=== PATIENT | female | born 1965 | race Caucasian/White ===

== ENCOUNTER 2018-11-10 08:44 | Emergency (ER) | payer OTHER ==
[2018-11-10] MEDS ORDERED: DIPHENHYDRAMINE HCL 50 MG/ML VIAL IV ONE (09:45)
[2018-11-10] MEDS ORDERED: FAMOTIDINE INJ/PF 20 MG/2 ML SDV IV ONE (09:45)
[2018-11-10] MEDS ORDERED: METHYLPREDNISOLONE INJ 125 MG/2 ML SDV IV ONE (09:45)
[2018-11-10 09:52] LABS: ABSOLUTE LYMPHOCYTES (AUTO) 1.3 10^3/uL (0.5-4.7); ABSOLUTE MONOCYTES (AUTO) 0.6 10^3/uL (0.1-1.4); ABSOLUTE NEUT (AUTO) 11.8 10^3/uL (1.7-8.2); BASOPHILS % (AUTO) 0.3 % (0-2); EOSINOPHILS % (AUTO) 0.2 % (0-6); HEMATOCRIT 39.5 % (36.0-47.0); HEMOGLOBIN 13.3 g/dL (12.0-15.5); LYMPHOCYTES % (AUTO) 9.6 % (13-45); MEAN CORPUSCULAR HEMOGLOBIN 28.4 pg (27.0-33.4); MEAN CORPUSCULAR HGB CONC 33.8 g/dL (32.0-36.0); MEAN CORPUSCULAR VOLUME 84 fl (80-97); PLATELET COUNT 709 10^3/uL (150-450); RED BLOOD COUNT 4.71 10^6/uL (3.72-5.28); RED CELL DISTRIBUTION WIDTH 12.9 % (11.5-14.0); SEGMENTED NEUTROPHILS % (AUTO) 85.9 % (42-78); TOTAL CELLS COUNTED % (AUTO) 100 %; WHITE BLOOD COUNT 13.8 10^3/uL (4.0-10.5)
[2018-11-10 10:08] LABS: ALKALINE PHOSPHATASE 97 U/L (38-126); ANION GAP 10 (5-19); ASPARTATE AMINO TRANSFERASE 26 U/L (14-36); BILIRUBIN,DIRECT 0.4 mg/dL (0.0-0.4); BILIRUBIN,TOTAL 1.3 mg/dL (0.2-1.3); BLOOD UREA NITROGEN 17 mg/dL (7-20); CALCIUM 9.7 mg/dL (8.4-10.2); CARBON DIOXIDE 27 mmol/L (22-30); CHLORIDE 99 mmol/L (98-107); GLUCOSE 138 mg/dL (75-110); POTASSIUM 4.7 mmol/L (3.6-5.0); TOTAL PROTEIN 7.1 g/dL (6.3-8.2)
[2018-11-10] MEDS ORDERED: NORMAL SALINE 1000 ML 1,000 ML IV ONE (10:37)
--- NOTE | 2018-11-10 10:44 | RADIOLOGY REPORT (SQ) ---
EXAM DESCRIPTION: CHEST 2 VIEWS COMPLETED DATE/TIME: 11/10/2018 10:22 am REASON FOR STUDY: sob COMPARISON: None. TECHNIQUE: Frontal and lateral radiographic views of the chest acquired. NUMBER OF VIEWS: Two view. LIMITATIONS: None. FINDINGS: LUNGS AND PLEURA: No opacities, masses or pneumothorax. No pleural effusion. MEDIASTINUM AND HILAR STRUCTURES: No masses or contour abnormalities. HEART AND VASCULAR STRUCTURES: Heart normal size. No evidence for failure. BONES: No acute findings. HARDWARE: None in the chest. OTHER: No other significant finding. IMPRESSION: NO SIGNIFICANT RADIOGRAPHIC FINDING IN THE CHEST. TECHNICAL DOCUMENTATION: JOB ID: [id number] [employer]- All Rights Reserved Reading location - IP/workstation name: [email or web address]
--- NOTE | 2018-11-10 11:39 | ER Document Report ---
ED Allergic Reaction - General Chief Complaint: Allergic Reaction Stated Complaint: RASH Time Seen by Provider: 11/10/18 09:26 Primary Care Provider: ALMA YOON MD [Primary Care Provider] - Follow up as needed DOLLY GALEAS MD [ASSOCIATE] - 11/14/18 Mode of Arrival: Ambulatory Information source: Patient Notes: Patient presents with 2-day history of hives. Patient is status post right knee replacement surgery 2 weeks ago. Patient is currently taking Metaline and Xarelto. Patient saw her surgeon yesterday and had an x-ray performed and her surgeon felt that her knee was healing properly. Patient states that she was advised that if she continued with hives today she should present to the emergency department for labs. Patient reports some shortness of breath today, no chest pain. Pt denies any fever, - HPI Onset: Other - 2 days Onset/Duration: Persistent Quality of pain: Achy Pain Level: 3 Medication Exposure: Xarelto, Metaline Skin rash / itching: Facial, Trunk, Extremities Associated symptoms: None Similar symptoms previously: No Recently seen / treated by doctor: Yes - Related Data Allergies/Adverse Reactions: aspirin Allergy (Verified 11/10/18 08:47) ketorolac [From Toradol] Allergy (Verified 11/10/18 08:47) NSAIDS (Non-Steroidal Anti-Inflamma Allergy (Verified 11/10/18 08:47) Penicillins Allergy (Verified 11/10/18 08:47) Past Medical History - General Information source: Patient - Social History Smoking Status: Never Smoker Frequency of alcohol use: None Drug Abuse: None Lives with: Spouse/Significant other Family History: Reviewed & Not Pertinent Patient has suicidal ideation: No Patient has homicidal ideation: No - Medical History Medical History: Negative Past Surgical History: Reports: Hx Orthopedic Surgery Review of Systems - Review of Systems Constitutional: No symptoms reported. denies: Fever, Recent illness EENT: No symptoms reported Cardiovascular: No symptoms reported. denies: Chest pain Respiratory: Short of breath. denies: Cough Gastrointestinal: No symptoms reported. denies: Abdominal pain, Nausea, Vomiting Genitourinary: No symptoms reported Female Genitourinary: No symptoms reported Musculoskeletal: Joint pain - Right knee postop pain Skin: Rash Hematologic/Lymphatic: No symptoms reported Neurological/Psychological: No symptoms reported. denies: Headaches Physical Exam - Vital signs Vitals: Temp Pulse Resp BP Pulse Ox 97.9 F 131 H 20 104/74 99 11/10/18 08:51 11/10/18 08:51 11/10/18 08:51 11/10/18 08:51 11/10/18 08:51 - General General appearance: Appears well, Alert In distress: None - HEENT Head: Normocephalic, Atraumatic Eyes: Normal Conjunctiva: Injected Nasal: Normal Mouth/Lips: Normal Mucous membranes: Normal Pharynx: Normal Neck: Normal, Supple. No: Lymphadenopathy - Respiratory Respiratory status: No respiratory distress Chest status: Nontender Breath sounds: Normal. No: Rales, Rhonchi, Stridor, Wheezing Chest palpation: Normal - Cardiovascular Rhythm: Tachycardia Heart sounds: S1 appreciated, S2 appreciated Murmur: No - Abdominal Inspection: Normal Bowel sounds: Normal Tenderness: Nontender - Back Back: Normal, Nontender. No: CVA tenderness - Extremities General upper extremity: Normal inspection, Normal ROM General lower extremity: Normal ROM, Other - Surgical incision over anterior aspect of right knee, wound edges approximated - Neurological Neuro grossly intact: Yes Cognition: Normal Orientation: AAOx4 Cecilia Coma Scale Eye Opening: Spontaneous [place] Coma Scale Verbal: Oriented [place] Coma Scale Motor: Obeys Commands [place] Coma Scale Total: 15 - Psychological Associated symptoms: Normal affect, Normal mood - Skin Skin Temperature: Warm Skin Moisture: Dry Skin Color: Other - Urticarial lesions distributed generally to face trunk and extremities Course - Re-evaluation Re-evalutation: 11/10/18 11:[address] Castaneda regarding patient presentation. Recommends adding on a lactic acid at this time. 11/10/18 13:16 Patient respirations even unlabored. Patient not tachycardic. Hives resolved in some areas and fading to the trunk. Spoke with Dr. Bah he was senior environmental technician for Dr. Galeas at [facility]. Discussed with Dr. Bah patient's presentation urticarial lesions and her surgeons concern about having labs done. Recommends discontinuing the Xarelto at this time as she is 2 weeks out status post knee replacement and recommends changing the Metaline at this time. No additional recommendations. - Vital Signs Vital signs: Temp Pulse Resp BP Pulse Ox 97.9 F 131 H 19 118/72 95 11/10/18 08:51 11/10/18 08:51 11/10/18 13:01 11/10/18 13:01 11/10/18 13:01 - Laboratory Result Diagrams: 11/10/18 09:30 11/10/18 09:30 Laboratory results interpreted by me: 11/10/18 11/10/18 09:30 09:30 WBC 13.8 H Plt Count 709 H Lymph % (Auto) 9.6 L Absolute Neuts (auto) 11.8 H Seg Neutrophils % 85.9 H Sodium 136.4 L Glucose 138 H 11/10/18 15:57 Labs- Entire Visit 11/10/18 11/10/18 11/10/18 09:30 09:30 09:30 WBC 13.8 H RBC 4.71 Hgb 13.3 Hct 39.5 MCV 84 MCH 28.4 MCHC 33.8 RDW 12.9 Plt Count 709 H Lymph % (Auto) 9.6 L Slope % (Auto) 4.0 Eos % (Auto) 0.2 Baso % (Auto) 0.3 Absolute Neuts (auto) 11.8 H Absolute Lymphs (auto) 1.3 Absolute Monos (auto) 0.6 Absolute Eos (auto) 0.0 Absolute Basos (auto) 0.0 Seg Neutrophils % 85.9 H Sodium 136.4 L Potassium 4.7 Chloride 99 Carbon Dioxide 27 Anion Gap 10 BUN 17 Creatinine 0.70 Est GFR ( Amer) > 60 Est GFR (MDRD) Non-Af > 60 Glucose 138 H Lactic Acid Calcium 9.7 Total Bilirubin 1.3 Direct Bilirubin 0.4 Neonat Total Bilirubin Not Reportable Neonat Direct Bilirubin Not Reportable Neonat Indirect Bili Not Reportable AST 26 ALT 28 Alkaline Phosphatase 97 Troponin I < 0.012 Total Protein 7.1 Albumin 4.0 11/10/18 11:27 WBC RBC Hgb Hct MCV MCH MCHC RDW Plt Count Lymph % (Auto) Slope % (Auto) Eos % (Auto) Baso % (Auto) Absolute Neuts (auto) Absolute Lymphs (auto) Absolute Monos (auto) Absolute Eos (auto) Absolute Basos (auto) Seg Neutrophils % Sodium Potassium Chloride Carbon Dioxide Anion Gap BUN Creatinine Est GFR ( Amer) Est GFR (MDRD) Non-Af Glucose Lactic Acid 1.1 Calcium Total Bilirubin Direct Bilirubin Neonat Total Bilirubin Neonat Direct Bilirubin Neonat Indirect Bili AST ALT Alkaline Phosphatase Troponin I Total Protein Albumin - Diagnostic Test Radiology reviewed: Reports reviewed Discharge - Discharge Clinical Impression: Urticaria Condition: Stable Disposition: HOME, SELF-CARE Instructions: Acute Urticaria ([facility]), Use of Diphenhydramine, Steroid Medication Additional Instructions: Return immediately for any new or worsening symptoms Followup with your primary care provider, call tomorrow to make a followup appointment Contact your surgeon on Wednesday for a recheck take Benadryl [id number] as directed to help with your symptoms [facility] Prescriptions: Diphenhydramine HCl [Benadryl] 50 mg PO QID PRN #24 capsule PRN Reason: Prednisone [Deltasone 20 mg Tablet] 3 tab PO DAILY 3 Days tablet Prednisone [Deltasone 20 mg Tablet] 3 tab PO DAILY 1 Days tablet Famotidine [Pepcid 20 mg Tablet] 20 mg PO BID PRN #6 tablet PRN Reason: Oxycodone HCl/Acetaminophen [Percocet 5-325 mg Tablet] 1 tab PO ASDIR PRN #12 tablet PRN Reason: Referrals: ALMA YOON MD [Primary Care Provider] - Follow up as needed DOLLY GALEAS MD [ASSOCIATE] - 11/14/18
[2018-11-10 13:24] VITALS: BP 118/72
--- NOTE | 2018-11-10 14:19 | EKG REPORT ---
SEVERITY:- OTHERWISE NORMAL ECG - SINUS TACHYCARDIA : Confirmed by: Ricardo Del Castillo 10-Nov-2018 14:18:16
== END 2018-11-10 15:03 | disposition home or self-care (01) ==
LOC: ER 08:44
DX: L50.9 Urticaria, unspecified (principal); T78.40XA Allergy, unspecified, initial encounter; Z79.899 Other long term (current) drug therapy; Z79.01 Long term (current) use of anticoagulants
CPT/HCPCS: 93005; 99283; 36415; 83605; 85025; 80053; 84484; 71046; 93010; J1200; J2930; J7030; S0028